=== PATIENT | female | born 1990 | race Caucasian/White ===

== ENCOUNTER 2021-07-10 20:10 | Emergency (ER) | payer OTHER ==
[~2021-07-10] VITALS: Ht 152.4 cm; Wt 52.6 kg
[2021-07-10 20:10] VITALS: BP 152/78
--- NOTE | 2021-07-10 20:11 | NUR ---
BHARATHI BRAND TAKEN TO BED #8
--- NOTE | 2021-07-10 20:42 | NUR ---
DR. ALCARAZ AT BEDSIDE FOR EVALUATION
[2021-07-10] MEDS ORDERED: LORazepam 0.5 MG TAB PO ONE ×2 (20:50→21:40)
[2021-07-10 21:10] LABS: BASOPHILS % (AUTO) 0.5 % (0.0-2.0); EOSINOPHILS % (AUTO) 0.4 % (0.0-4.0); HEMATOCRIT 37.2 % (36-48); HEMOGLOBIN 12.1 g/dL (12.0-16.0); LYMPHOCYTES # (AUTO) 1.3 K/uL (2.5-16.5); MEAN CORPUSCULAR HEMOGLOBIN 26 pg (27-31); MEAN CORPUSCULAR HGB CONC 33 g/dL (33-37); MEAN CORPUSCULAR VOLUME 80.2 fL (80-94); MONOCYTES # (AUTO) 0.3 K/uL (0.8-1.0); MONOCYTES % (AUTO) 4.9 % (1.7-9.3); NEUTROPHILS # (AUTO) 4.6 K/uL (1.8-7.7); NEUTROPHILS % (AUTO) 73.2 % (42.2-75.2); PLATELET COUNT (AUTO) 360 K/uL (140-450); RED BLOOD CELL COUNT(AUTO) 4.64 MIL/uL (4.20-5.40); RED CELL DISTRIBUTION WIDTH 17.2 % (11.6-13.7); WHITE BLOOD COUNT (AUTO) 6.3 K/uL (4.8-10.8)
--- NOTE | 2021-07-10 21:21 | NUR ---
TELEPSYCH DOCTOR SPEAKING WITH PRIMARY NURSE Vito MADISON
[2021-07-10 21:34] LABS: ALBUMIN 4.1 g/dL (3.4-5.0); ANION GAP 9.5 (8-16); ASPARTATE AMINOTRANSFERASE 11 U/L (15-37); CARBON DIOXIDE 28.9 mmol/L (21-32); CHLORIDE 105 mmol/L (98-107); CREATININE 0.7 mg/dL (0.6-1.3); GFR ARICAN-AMERICAN 124 mL/min (>90); GLUCOSE 92 mg/dL (74-106); POTASSIUM 3.4 mmol/L (3.5-5.1); SALICYLATE 4.2 mg/dL (2.8-20.0); SODIUM SERUM 140 mmol/L (136-145); TOTAL BILIRUBIN 0.4 mg/dL (0.0-1.0); UREA NITROGEN, BLOOD 8 mg/dL (7-18)
[2021-07-10 21:36] LABS: ACETAMINOPHEN < 0.5 ug/ml (10-30)
[2021-07-10] MEDS ORDERED: ARIP5TAB8 PO (21:45)
[2021-07-10] MEDS ORDERED: ESCI5TAB PO (21:45)
[2021-07-10] MEDS ORDERED: ARIPiprazole 10 MG TAB ONE (21:52)
[2021-07-10] MEDS ORDERED: ESCITALOPRAM 20 MG TAB ONE (21:53)
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
[2021-07-10 22:36] LABS: APPEARANCE,URINE CLOUDY (CLEAR); BILIRUBIN,URINE NEGATIVE (NEGATIVE); BLOOD, URINE 3+ (NEGATIVE); COLOR,URINE RED (YELLOW); LEUKOCYTE ESTERASE ,URINE NEGATIVE (NEGATIVE); NITRITE, URINE NEGATIVE (NEGATIVE); PH,URINE 8.5 (5.0-9.0); UGLUCOSE NEGATIVE (NEGATIVE)
[2021-07-10 22:51] LABS: BARBITURATE, URINE NEGATIVE ng/ml (NEG <=200); BENZODIAZEPINE, URINE NEGATIVE ng/mL (NEG <=200); CANNABINOID, URINE POSITIVE ng/mL (NEG <=50); COCAINE, URINE NEGATIVE ng/mL (NEG <=300); OPIATE, URINE NEGATIVE ng/mL (NEG <=2000); PHENCYCLIDINE SCREEN,URINE NEGATIVE ng/mL (NEG <=25)
[2021-07-10 22:53] LABS: RBC,URINE TOO NUMEROUS TO COUN /HPF (0-5); WBC,URINE 0-5 /HPF (0-5)
[2021-07-10 23:05] VITALS: BP 128/80
--- NOTE | 2021-07-10 23:05 | NUR ---
Patient discharged with v/s stable. Written and verbal after care instructions given and explained. Patient alert, oriented and verbalized understanding of instructions. Ambulatory with steady gait. All questions addressed prior to discharge. ID band removed. Patient advised to follow up with PMD. Rx of ABILIFY AND LEXAPRO given. Opportunity to ask questions provided and answered.
--- NOTE | 2021-07-10 23:44 | NUR ---
The patient's care was reviewed and supervised by Mari Medina RN.
[2021-07-11] MEDS ORDERED: ESCITALOPRAM 20 MG TAB PO SCH (09:00)
[2021-07-11] MEDS ORDERED: ARIPiprazole 10 MG TAB PO SCH (09:00)
== END 2021-07-10 23:05 | disposition home or self-care (01) ==
LOC: MED 20:10
DX: F41.8 Other specified anxiety disorders (principal)
CPT/HCPCS: 36415; 80053; 80305; 81001; 81025; 85025; 87086; 99284; G0480; G0482